=== PATIENT | male | born 1955 | race Caucasian/White ===

== ENCOUNTER → 2022-01-28 | Outpatient (CLI) | payer MEDICARE, OTHER ==
[2022-01-28 18:26] LABS: African American GFR (CKD) 87.3 (60.0-200.0); Calcium 9.4 mg/dL (8.7-10.3); Carbon Dioxide 20.2 mmol/L (20.0-27.5); Chloride 103 mmol/L (96-109); Glucose 87 mg/dL (70-110); Non-African American GFR(CKD) 75.3 (60.0-200.0); Potassium 4.6 mmol/L (3.5-5.5); Sodium 137 mmol/L (135-145); Uric Acid 4.9 mg/dL (3.7-8.7)
[2022-01-28 18:31] LABS: Basophils # (A) 0.02 X 10*3/uL (0.00-0.10); Basophils % (A) 0.5 %; Eosinophils # (A) 0.14 X 10*3/uL (0.04-0.35); Eosinophils % (A) 3.2 %; HCT 39.3 % (39.6-50.0); HGB 12.7 g/dL (13.0-17.0); Immature Grans, Automated 0.2 %; Lymphocytes # (A) 1.51 X 10*3/uL (0.90-5.00); Lymphocytes % (A) 34.9 %; MCH 32.6 pg (27.0-32.0); MCHC 32.3 g/dL (32.0-37.0); Mean Platelet Volume 9.9 fL (9.5-12.2); Monocytes # (A) 0.56 X 10*3/uL (0.20-1.00); Monocytes % (A) 12.9 %; NRBC Per 100 WBC 0 /100 WBCS (0.0-0.0); Neutrophils # (A) 2.09 X 10*3/uL (1.80-7.70); Neutrophils % (A) 48.3 %; Platelet Count 275 X 10*3/uL (140-440); RBC 3.89 X 10*6/uL (4.40-5.60); RDW 13.6 % (11.5-14.5); WBC 4.33 X 10*3/uL (4.50-10.00)
[2022-01-28 18:40] LABS: ALT 30 U/L (10-49); AST 32 U/L (14-35); Alkaline Phosphatase 81 U/L (41-126); Chol/HDL Ratio 2.78 Ratio; Creatine Kinase 193 U/L (35-257); LDL Cholesterol,Calculated 58.9 mg/dL (0.0-131.0); VLDL Calculation 16.56 mg/dL (5.00-40.00)
[2022-01-28 18:53] LABS: LDL Cholesterol, Direct 51.6 mg/dL (0.00-129.00)
== END | disposition home or self-care (01) ==
LOC: LABWHC1 09:13
PROVIDERS: ATTEND Internal Medicine Cardiovascular Disease
DX: I25.10 Atherosclerotic heart disease of native coronary artery without angina pectoris (principal)
CPT/HCPCS: 36415; 80051; 80061; 82310; 82550; 82565; 82947; 83721; 84075; 84436; 84443; 84450; 84460; 84480; 84550; 85025

== ENCOUNTER → 2022-04-05 | Outpatient (CLI) | payer MEDICARE, OTHER ==
[2022-04-05 11:12] LABS: HCT 39.1 % (39.6-50.0); HGB 12.5 g/dL (13.0-17.0); MCH 32.9 pg (27.0-32.0); MCV 102.9 fL (80.0-97.0); Mean Platelet Volume 10.6 fL (9.5-12.2); NRBC Per 100 WBC 0 /100 WBCS (0.0-0.0); Platelet Count 261 X 10*3/uL (140-440); RDW 12.6 % (11.5-14.5); WBC 4.36 X 10*3/uL (4.50-10.00)
[2022-04-05 11:28] LABS: Chol/HDL Ratio 3.43 Ratio; LDL Cholesterol,Calculated 67.5 mg/dL (0.0-131.0)
== END | disposition home or self-care (01) ==
LOC: LABWHC1 07:48
PROVIDERS: ATTEND Family Medicine
DX: Z00.00 Encounter for general adult medical examination without abnormal findings (principal); Z12.5 Encounter for screening for malignant neoplasm of prostate; E55.9 Vitamin D deficiency, unspecified; R68.89 Other general symptoms and signs; R79.9 Abnormal finding of blood chemistry, unspecified; R53.83 Other fatigue; R39.9 Unspecified symptoms and signs involving the genitourinary system
CPT/HCPCS: 36415; 80061; 83036; 84403; 85027

== ENCOUNTER → 2023-12-11 | Outpatient (CLI) | payer MEDICARE, OTHER ==
--- NOTE | 2023-12-11 13:03 | XR ---
EXAM TYPE: LUMBAR SPINE X RAY SERIES COMPARISON: NONE HISTORY: Pain TECHNIQUE: 4 views are submitted. FINDINGS: There is a slight curve to the spine with extensive postsurgical changes from levels L3-S1. Severe de generative disc disease with anterior wedging L1-2 and L2-3 which could be discogenic. Sclerosis and both vertebral segments also most likely discogenic. Other etiologies not excluded. Multiple bilateral renal calculi. SI joint arthropathy greater on the right. Diffuse demineralization. No spondylolisthesis. IMPRESSION: 1. Postoperative changes L3-S1 appear in near anatomic alignment. Suspect multilevel foraminal encroa chment. 2. No prior exams are available for comparison. There is severe degenerative disc disease L-1-2 and L 2-L3. There is anterior wedging of both segments with marrow alteration in density. Findings are felt to be most likely discogenic. If there is concern for osteomyelitis or discitis, then MRI with contr ast would be suggested. 3. Bilateral renal calculi.
== END | disposition home or self-care (01) ==
LOC: RADXRMAIN 12:38
PROVIDERS: ATTEND Nurse Practitioner Adult Health
DX: M51.36 Other intervertebral disc degeneration, lumbar region (principal); N20.0 Calculus of kidney; M54.16 Radiculopathy, lumbar region
CPT/HCPCS: 72100

== ENCOUNTER → 2024-11-26 | Outpatient (CLI) | payer MEDICARE, OTHER ==
--- NOTE | 2024-11-26 12:17 | CTL ---
EXAMINATION TYPE: CT Low Dose Lung DATE OF EXAM ORDERED: 11/26/2024 COMPARISON: None CLINICAL INDICATION: Male, 69 years old with history of Z12.2 LUNG CANCER SCREENING Z87.891 NICOTINE DEPEN; PH[facility], 1PPD x50yrs., Lung cancer screening, History of Smoking/tobacco use. TECHNIQUE: Low dose computed tomography scan was performed through the chest at 1 mm thick sections a nd reconstructed images in multiple planes at 1 mm and [address] DLP: 95.[address] CTDI: 2.5 mGy Automated exposure control for dose reduction was used. CT DIAGNOSTIC QUALITY: Satisfactory FINDINGS: Nodules: No clinically significant pulmonary nodules. LUNGS: COPD: Severity: None Fibrosis: Severity: None Lymph nodes: None Other findings: Biapical pleural-parenchymal scarring. Minimal bilateral lower lobe medial subsegment al atelectasis. RIGHT PLEURAL SPACE: Effusion: None Calcification: None Thickening: None Pneumothorax: None LEFT PLEURAL SPACE: Effusion: None Calcification: None Thickening: None Pneumothorax: None HEART: Heart Size: Normal Coronary Calcification: Moderate Pericardial Effusion: None OTHER FINDINGS: Upper abdomen: At least 4 nonobstructive left renal calculi identified with largest measuring up to 6 mm. Bony thorax: Multilevel anterior osteophytosis of the lower thoracic spine. Advanced degenerative dis c disease at L1-L2. Supraclavicular region: None Other: Cervical fusion hardware on the practice architect radiograph. Mild atherosclerotic calcification of the ao rta and its branches. IMPRESSION: 1. No clinically significant pulmonary nodules. 2. Nonobstructive left renal calculi. 3. Moderate coronary artery calcifications. CT LUNG RAD AND CT CHEST RECOMMENDATION: Lung-Rad 1 Negative: Continue annual screening with LDCT in 12 months. S Modifier (other clinically significant findings): None [facility], , 11/26/2024 12:14 PM
== END | disposition home or self-care (01) ==
LOC: RADCTMAIN 11:20
PROVIDERS: ATTEND Family Medicine
DX: Z12.2 Encounter for screening for malignant neoplasm of respiratory organs (principal); N20.0 Calculus of kidney; I25.10 Atherosclerotic heart disease of native coronary artery without angina pectoris; Z87.891 Personal history of nicotine dependence
CPT/HCPCS: 71271